=== PATIENT | female | born 1960 | race Two or more races ===

== ENCOUNTER 2020-03-26 14:59 | Emergency (ER) | payer BC, MEDICAID ==
[2020-03-26] MEDS ORDERED: LORazepam 2 MG/ML SDV IVPUSH ONE (15:12)
[2020-03-26] MEDS ORDERED: Sodium Chloride 0.9% 2.5 ML Syringe FLUSH PRN (15:12)
[2020-03-26] MEDS ORDERED: Sodium Chloride 0.9% 10 ML Syringe FLUSH PRN (15:12)
[2020-03-26] MEDS ORDERED: Ondansetron 4 MG/2 ML SDV IVPUSH ONE (15:12)
[2020-03-26] MEDS ORDERED: Ketorolac 15 MG/ML SDV IVPUSH ONE (15:12)
--- NOTE | 2020-03-26 15:17 | EDM.PDOC ---
ED HPI GENERAL MEDICAL PROBLEM - General Chief Complaint: Chest Pain Stated Complaint: CHEST PAIN/SOB/HIGH BLOOD PRESSURE Time Seen by Provider: 03/26/20 15:05 - History of Present Illness INITIAL COMMENTS - FREE TEXT/NARRATIVE: History of present illness: The patient was awakened about 2 AM with news that her son in [place] had overdosed. This is in the face of having serious concerns about her father's failing health. The patient developed a headache by 3 AM and it has gotten worse since. She is associated with trouble breathing feeling of chest tightness and feeling she cannot get a good breath. Now she is nauseated as well and her blood pressure is elevated. The patient's headache is severe 10 out of 10 and constant. Nothing makes it better nothing makes it worse. Is associated with tightness in her neck muscles and a feeling very tight neck and shoulder muscles are getting worse as time goes on. The patient is a non-smoker who is treated for hypertension and has a family history of heart disease. [] Review of systems: As per history of present illness and below otherwise all systems reviewed and negative. Past medical history: As per history of present illness and as reviewed below otherwise noncontributory. Surgical history: As per history of present illness and as reviewed below otherwise noncontributory. Social history: No reported history of drug or alcohol abuse. Family history: As per history of present illness and as reviewed below otherwise noncontributory. Physical exam: The patient is in moderate distress. HEENT: Atraumatic, normocephalic, pupils reactive, negative for conjunctival pallor or scleral icterus, mucous membranes moist, throat clear, neck is are tight and the jaws clenched., nontender, trachea midline. Lungs: Clear to auscultation, breath sounds equal bilaterally, chest nontender. Heart: S1S2, regular, negative for clicks, rubs, or JVD. Abdomen: Soft, nondistended, nontender. Negative for masses or hepatosplenomegaly. Negative for costovertebral tenderness. Pelvis: Stable nontender. Genitourinary: Deferred. Rectal: Deferred. Extremities: Atraumatic, negative for cords or calf pain. Neurovascular unremarkable. Neuro: Awake, alert, oriented. Cranial nerves II through XII unremarkable. Cerebellum unremarkable. Motor and sensory unremarkable throughout. Exam nonfocal. Diagnostics: EKG sinus rhythm with a heart rate of 65 and an axis of 62. There are borderline ST abnormalities. [] Therapeutics: 1606 hrs. the patient feels better. Her jaws not clenched. Her neck muscles are loosened up. Her blood pressure is 135/90. [] Impression: [] Muscle contraction headache, chest wall pain,anxiety reaction Plan: [] Definitive disposition and diagnosis as appropriate pending reevaluation and review of above. Patient has elevated liver function test but no elevation of her bilirubin and her abdomen is not tender. Onset: Today, Sudden generalized Pain Score (Numeric/FACES): 8 - Related Data Allergies Allergy/AdvReac Type Severity Reaction Status Date / Time codeine Allergy Difficulty Verified 03/26/20 15:11 Breathing Home Meds: Home Meds diazePAM [Valium] 5 mg PO TID PRN #15 tab 03/26/20 [Rx] ED ROS GENERAL - Review of Systems Review Of Systems: Comprehensive ROS is negative, except as noted in HPI. - Physical Exam Exam: See Below Course - Vital Signs Last Recorded V/S: Last Vital Signs Temp 96.5 F L 03/26/20 15:05 Pulse 70 03/26/20 15:05 Resp 30 H 03/26/20 15:05 BP 220/114 H 03/26/20 15:05 Pulse Ox 99 03/26/20 15:05 - Orders/Labs/Meds Orders: Active Orders 24 hr Category Date Time Status EKG Documentation Completion [RC] AM Care 03/26/20 15:12 Active UA W/DEE RFLX IF INDICATED [URIN] Stat Lab 03/26/20 15:14 Ordered Sodium Chloride 0.9% [Saline Flush] Med 03/26/20 15:12 Active 10 ml FLUSH ASDIRECTED PRN Sodium Chloride 0.9% [Saline Flush] Med 03/26/20 15:12 Active 2.5 ml FLUSH ASDIRECTED PRN Saline Lock Insert [OM.PC] Stat Oth 03/26/20 15:12 Ordered Medication Orders Sodium Chloride (Saline Flush) 10 ml FLUSH ASDIRECTED PRN PRN Reason: Keep Vein Open Sodium Chloride (Saline Flush) 2.5 ml FLUSH ASDIRECTED PRN PRN Reason: Keep Vein Open Labs: Laboratory Tests 03/26/20 03/26/20 Range/Units 15:30 15:30 WBC 6.33 (4.0-11.0) K/uL RBC 4.88 (4.30-5.90) M/uL Hgb 12.6 (12.0-16.0) g/dL Hct 39.6 (36.0-46.0) % MCV 81.1 (80.0-98.0) fL MCH 25.8 L (27.0-32.0) pg MCHC 31.8 (31.0-37.0) g/dL RDW Std Deviation 44.7 (28.0-62.0) fl RDW Coeff of Maureen 15 (11.0-15.0) % Plt Count 322 (150-400) K/uL MPV 9.90 (7.40-12.00) fL Neut % (Auto) 51.8 (48.0-80.0) % Lymph % (Auto) 31.8 (16.0-40.0) % [place] % (Auto) 8.8 (0.0-15.0) % Eos % (Auto) 6.8 (0.0-7.0) % Baso % (Auto) 0.8 (0.0-1.5) % Neut # (Auto) 3.3 (1.4-5.7) K/uL Lymph # (Auto) 2.0 (0.6-2.4) K/uL [place] # (Auto) 0.6 (0.0-0.8) K/uL Eos # (Auto) 0.4 (0.0-0.7) K/uL Baso # (Auto) 0.1 (0.0-0.1) K/uL Nucleated RBC % 0.0 /100WBC Nucleated RBCs # 0 K/uL Sodium 136 (136-145) mmol/L Potassium 3.4 L (3.5-5.1) mmol/L Chloride 98 (98-107) mmol/L Carbon Dioxide 27.4 (21.0-32.0) mmol/L BUN 4 L (7.0-18.0) mg/dL Creatinine 0.6 (0.6-1.0) mg/dL Est Cr Clr Drug Dosing 98.18 mL/min Estimated GFR (MDRD) > 60.0 ml/min Glucose 111 H (74-106) mg/dL Calcium 8.9 (8.5-10.1) mg/dL Total Bilirubin 0.8 (0.2-1.0) mg/dL AST 319 H (15-37) IU/L ALT 412 H (14-63) IU/L Alkaline Phosphatase 254 H (46-116) U/L Troponin I < 0.050 (0.000-0.056) ng/mL Total Protein 8.2 (6.4-8.2) g/dL Albumin 4.0 (3.4-5.0) g/dL Globulin 4.2 H (2.6-4.0) g/dL Albumin/Globulin Ratio 1.0 (0.9-1.6) Meds: Medications Generic Name Dose Route Start Last Admin Trade Name Freq PRN Reason Stop Dose Admin Sodium Chloride 10 ml 03/26/20 15:12 Saline Flush FLUSH ASDIRECTED PRN Keep Vein Open Sodium Chloride 2.5 ml 03/26/20 15:12 Saline Flush FLUSH ASDIRECTED PRN Keep Vein Open Discontinued Medications Generic Name Dose Route Start Last Admin Trade Name Freq PRN Reason Stop Dose Admin Ketorolac Tromethamine 15 mg 03/26/20 15:12 03/26/20 15:44 Toradol IVPUSH 03/26/20 15:13 15 mg ONETIME ONE Administration Lorazepam 1 mg 03/26/20 15:12 03/26/20 15:46 Ativan IVPUSH 03/26/20 15:13 1 mg ONETIME ONE Administration Ondansetron HCl 4 mg 03/26/20 15:12 03/26/20 15:42 Zofran IVPUSH 03/26/20 15:13 4 mg ONETIME ONE Administration Departure - Departure Time of Disposition: 16:46 Disposition: Home, Self-Care 01 Condition: Good Clinical Impression: Chest wall pain, Anxiety, Muscle contraction headache - Discharge Information *PRESCRIPTION DRUG MONITORING PROGRAM REVIEWED*: Not Applicable *COPY OF PRESCRIPTION DRUG MONITORING REPORT IN PATIENT ALEKS: Not Applicable Instructions: Nonspecific Chest Pain, Adult, [id number], Tension Headache, Adult, [id number] Referrals: PCP,Not In Area [Primary Care Provider] - Forms: ED Department Discharge Additional Instructions: Replace the Ativan with the Valium for the next few days and follow-up closely with your doctor or the clinic. [facility] [address] [place] [address] [facility] [address] [place] [id number] The following information is given to patients seen in the emergency department who are being discharged to home. This information is to outline your options for follow-up care. We provide all patients seen in our emergency department with a follow-up referral. The need for follow-up, as well as the timing and circumstances, are variable depending upon the specifics of your emergency department visit. If you don't have a primary care physician on staff, we will provide you with a referral. We always advise you to contact your personal physician following an emergency department visit to inform them of the circumstance of the visit and for follow-up with them and/or the need for any referrals to a consulting specialist. The emergency department will also refer you to a specialist when appropriate. This referral assures that you have the opportunity for follow-up care with a specialist. All of these measure are taken in an effort to provide you with optimal care, which includes your follow-up. Under all circumstances we always encourage you to contact your private physician who remains a resource for coordinating your care. When calling for follow-up care, please make the office aware that this follow-up is from your recent emergency room visit. If for any reason you are refused follow-up, please contact the [facility] Emergency Department at and asked to speak to the emergency department charge nurse. [facility]ange Ativan to Valium for five days and take tylenol for headache Sepsis Event Note (ED) - Evaluation Sepsis Screening Result: No Definite Risk - Focused Exam Vital Signs: Vital Signs Temp Pulse Resp BP Pulse Ox 03/26/20 15:05 96.5 F L 70 30 H 220/114 H 99 - My Orders Last 24 Hours: My Active Orders 03/26/20 15:12 EKG Documentation Completion [RC] AM Sodium Chloride 0.9% [Saline Flush] 10 ml FLUSH ASDIRECTED PRN Sodium Chloride 0.9% [Saline Flush] 2.5 ml FLUSH ASDIRECTED PRN Saline Lock Insert [OM.PC] Stat 03/26/20 15:14 UA W/DEE RFLX IF INDICATED [URIN] Stat - Assessment/Plan Last 24 Hours: My Active Orders 03/26/20 15:12 EKG Documentation Completion [RC] AM Sodium Chloride 0.9% [Saline Flush] 10 ml FLUSH ASDIRECTED PRN Sodium Chloride 0.9% [Saline Flush] 2.5 ml FLUSH ASDIRECTED PRN Saline Lock Insert [OM.PC] Stat 03/26/20 15:14 UA W/DEE RFLX IF INDICATED [URIN] Stat
[2020-03-26 16:10] LABS: BLOOD UREA NITROGEN,BUN 4 mg/dL (7.0-18.0); CARBON DIOXIDE,CO2 27.4 mmol/L (21.0-32.0); CHLORIDE,CL 98 mmol/L (98-107); GLUCOSE RANDOM 111 mg/dL (74-106); POTASSIUM,K 3.4 mmol/L (3.5-5.1); SODIUM,NA 136 mmol/L (136-145)
== END 2020-03-26 17:00 | disposition home or self-care (01) ==
LOC: MW.ED 14:59
DX: R51 Headache (principal); F41.9 Anxiety disorder, unspecified; Z88.5 Allergy status to narcotic agent
CPT/HCPCS: 36415; 80053; 81001; 84484; 85025; 93005; 96374; 96375; 99285; J1885; J2060; J2405; 99283